=== PATIENT | female | born 2000 | race Caucasian/White ===

== ENCOUNTER 2019-03-04 23:26 | Emergency (ER) | payer OTHER ==
--- NOTE | 2019-03-05 02:43 | ED ---
GI/ HPI - HPI Summary HPI Summary: Pt is a 18 y/o F presenting to the ED with a chief complaint of blood in her stool. She states she has had blood in her stool in the past, but it was always only a drop and it was very infrequent. However, she has now had two episodes of a large amount of blood in her stool over the past week, which is more frequent and severe than normal. It is bright red and accompanied by some rectal pain. She has an appointment with a GI doctor on the 12 of March. She reports some pain in her L ribs, abd cramping, and some occasional dizziness when standing. She denies fever, chills, vaginal bleeding, discharge, nausea, or vomiting. She notes shes on Augmentin. LNMP 02/12/19. - History of Current Complaint Chief Complaint: EDGIBleed Time Seen by Provider: 03/05/19 02:16 Stated Complaint: BLEEDING PER PT Hx Obtained From: Patient Onset/Duration: Started Days Ago, Still Present Timing: Intermittent Severity: Moderate Current Severity: Moderate Pain Intensity: 5 Location of Pain: Suprapubic Associated Signs and Symptoms: Positive: Dizziness, Bright Red Blood w/Stool, Abdominal Pain. Negative: Nausea, Vomiting, Fever, Chills Additional Signs & Symptoms: Negative: Vaginal Bleeding, Vaginal Discharge Aggravating Factor(s): Nothing Alleviating Factor(s): Nothing - Allergy/Home Medications Allergies/Adverse Reactions: Allergies Allergy/AdvReac Type Severity Reaction Status Date / Time No Known Allergies Allergy Verified 03/04/19 23:34 PMH/Surg Hx/FS Hx/Imm Hx Previously Healthy: Yes Endocrine/Hematology History: Denies: Hx Diabetes Cardiovascular History: Denies: Hx Hypertension Infectious Disease History: No Infectious Disease History: Denies: Traveled Outside the [place] in Last 30 Days - Family History Known Family History: Positive: Other - colon CA - Social History Alcohol Use: None Hx Substance Use: No Substance Use Type: Reports: None Hx Tobacco Use: No Smoking Status (MU): Never Smoked Tobacco Review of Systems Negative: Fever, Chills Positive: Abdominal Pain, Other - blood in stool, rectal bleeding. Negative: Vomiting, Nausea Negative: discharge - vaginal, other - vaginal bleeding Positive: Myalgia - pain in ribs All Other Systems Reviewed And Are Negative: Yes Physical Exam - Summary Physical Exam Summary: Constitutional: Well-developed, Well-nourished, Alert. (-) Distressed Skin: Warm, Dry HENT: Normocephalic; Atraumatic Eyes: Conjunctiva normal Neck: Musculoskeletal ROM normal neck. (-) JVD, (-) Stridor, (-) Tracheal deviation Cardio: Rhythm regular, rate normal, Heart sounds normal; Intact distal pulses; Radial pulses are 2+ and symmetric. (-) Murmur Pulmonary/Chest wall: Effort normal. (-) Respiratory distress, (-) Wheezes, (-) Rales Abd: Soft, (-) tenderness, (-) Distension, (-) Guarding, (-) Rebound Musculoskeletal: (-) Edema Lymph: (-) Cervical adenopathy Neuro: Alert, Oriented x3 Psych: Mood and affect Normal Rectal: No external hemorrhoid. No fissure. Small amount of blood on ETELVINA. Triage Information Reviewed: Yes Vital Signs On Initial Exam: Initial Vitals Temp Pulse Resp BP Pulse Ox 98.8 F 78 16 141/78 99 03/04/19 23:32 03/04/19 23:32 03/04/19 23:32 03/04/19 23:32 03/04/19 23:32 Vital Signs Reviewed: Yes Procedures - Sedation Patient Received Moderate/Deep Sedation with Procedure: No Diagnostics - Vital Signs Vital Signs Temp Pulse Resp BP Pulse Ox 03/04/19 23:32 98.8 F 78 16 141/78 99 - Laboratory Lab Statement: Any lab studies that have been ordered have been reviewed, and results considered in the medical decision making process. GIGU Course/Dx - Course Course Of Treatment: Patient is here with her third episode of bloody stool. Patient did show pictures of blood stained toilet paper. Patient has no symptoms of anemia and is overall well-appearing. Patient has no abdominal tenderness concerning for inflammatory bowel disease. Patient had a rectal exam which showed no external hemorrhoids or fissure. Patient has follow up with GI in 1 week. Patient was educated on the causes of blood in her stool and reassured that she does not need emergent workup tonight. Patient has had left upper quadrant pain off and on for 6 months so she was started on omeprazole - Diagnoses Provider Diagnoses: Rectal bleeding Discharge ED - Sign-Out/Discharge Documenting (check all that apply): Patient Departure - Discharge Plan Condition: Stable Disposition: HOME Prescriptions: Omeprazole 20 mg PO QAM 14 Days #14 capsule. Patient Education Materials: Rectal Bleeding (ED) Referrals: [facility] [Outside] Additional Instructions: Please follow up with your GI doctor on 03/12 as planned. Take your prescribed medications as instructed. Come back to the emergency department with severe abdominal pain or fever. - Billing Disposition and Condition Condition: STABLE Disposition: Home - Attestation Statements Document Initiated by Scribe: Yes Documenting Scribe: Carmen Epps Provider For Whom Eliza is Documenting (Include Credential): Amado Castano MD. Scribe Attestation: Carmen Burnett, scribed for Amado Castano MD. on 03/05/19 at 0439. Scribe Documentation Reviewed: Yes Provider Attestation: The documentation as recorded by the scribe, Carmen Epps accurately reflects the service I personally performed and the decisions made by me, Amado Castano MD. Status of Scribe Document: Viewed
[2019-03-05 02:59] VITALS: BP 116/66
== END 2019-03-05 02:58 | disposition home or self-care (01) ==
LOC: ED 23:26
DX: K62.5 Hemorrhage of anus and rectum (principal)
CPT/HCPCS: 99282